=== PATIENT | male | born 1970 | race African-American/Black ===

== ENCOUNTER 2017-01-22 08:09 | Day surgery (SDC) | payer OTHER, MEDICAID ==
[~2017-01-22 08:09] MED LIST: AMLO5TAB2 PO; ASPI325T4 PO; ATEN25TA PO; CAPT1TAB PO; CAPT1TAB8 PO; HYDR25TA6 PO; LISI-170 PO; LORA0.5T PO; NITR0.4T8 SL; OMEP-110 PO; PARO10TA24 PO
[2017-01-22] MEDS ORDERED: LIDOCAINE/PF 1%-EPI 1:200K, 30 ML ONE (09:16)
[2017-01-22] MEDS ORDERED: CHLO25TA PO (09:24)
[2017-01-22] MEDS ORDERED: CARV25TA12 PO (09:24)
[2017-01-22] MEDS ORDERED: LORA0.5T PO (09:24)
[2017-01-22] MEDS ORDERED: TERA5CAP3 PO (09:24)
[2017-01-22] MEDS ORDERED: AMLO5TAB2 PO (09:24)
[2017-01-22] MEDS ORDERED: OMEP-110 PO (09:24)
== END 2017-01-22 10:23 ==
LOC: CACL 08:09
PROVIDERS: ATTEND Internal Medicine Cardiovascular Disease
DX: Z45.09 Encounter for adjustment and management of other cardiac device (principal); Z88.0 Allergy status to penicillin
CPT/HCPCS: 33284; C1764; J3490